=== PATIENT | female | born 1950 | race Caucasian/White ===

== ENCOUNTER → 2018-07-18 | Outpatient (CLI) | payer MEDICARE ==
[~2018-07-18] MED LIST: CALC-55 PO; LEVO100T5 PO; MULT1TAB60 PO
== END | disposition home or self-care (01) ==
LOC: STAR 09:33
PROVIDERS: ATTEND Orthopaedic Surgery
DX: M75.101 Unspecified rotator cuff tear or rupture of right shoulder, not specified as traumatic (principal); M65.811 Other synovitis and tenosynovitis, right shoulder
CPT/HCPCS: 93005

== ENCOUNTER 2018-07-25 10:19 | Day surgery (SDC) | payer MEDICARE ==
[~2018-07-25] VITALS: Ht 157.5 cm; Wt 62.5 kg
[2018-07-25] MEDS ORDERED: LACTATED RINGERS 1,000 ML IV SCH (10:58)
[2018-07-25] MEDS ORDERED: LIDOCAINE-MPF 1%, 2ML INFIL ONE (11:30)
[2018-07-25] MEDS ORDERED: LIDOCAINE 1%-EPI 1:100K, 20ML ONE (11:55)
[2018-07-25] MEDS ORDERED: MIDAZOLAM 1 MG/ML, 2ML ONE (12:38)
[2018-07-25] MEDS ORDERED: FENTANYL PF 250 MCG/5ML ONE (12:54)
[2018-07-25] MEDS ORDERED: CLINDAMYCIN 150 MG/ML, 6ML ONE (12:56)
[2018-07-25] MEDS ORDERED: PROMETHAZINE 25 MG/ML, 1ML IV PRN (13:00)
[2018-07-25] MEDS ORDERED: hydrALAzine 20 MG/ML, 1ML IV PRN (13:00)
[2018-07-25] MEDS ORDERED: ALBUTEROL SULFATE 2.5 MG/3 ML NPPB PRN (13:00)
[2018-07-25] MEDS ORDERED: OXYcodone 5 MG/5 ML ORAL.SOL UDC PO PRN (13:00)
[2018-07-25] MEDS ORDERED: LABETALOL 5MG/ML, 20ML IV PRN (13:00)
[2018-07-25] MEDS ORDERED: MEPERIDINE/PF 25MG/0.5ML IVPush PRN (13:00)
[2018-07-25] MEDS ORDERED: KETOROLAC 30 MG/1 ML IV PRN (13:00)
[2018-07-25] MEDS ORDERED: ACETAMINOPHEN 325 MG TABLET PO PRN (13:00)
[2018-07-25] MEDS ORDERED: DIAZEPAM 5 MG/ML, 2ML IVPush PRN (13:00)
[2018-07-25] MEDS ORDERED: HYDROmorphone 2 MG/ML, 1ML IVPush PRN (13:00)
[2018-07-25] MEDS ORDERED: FENTANYL PF 100 MCG/2ML IV PRN (13:00)
[2018-07-25] MEDS ORDERED: NEOSTIGMINE 1 MG/ML, 10ML ONE (14:33)
[2018-07-25] MEDS ORDERED: GLYCOPYRROLATE 0.2MG/1ML, 5ML ONE (14:33)
[2018-07-25] MEDS ORDERED: ROCURONIUM 10MG/ML,5ML ONE (14:33)
[2018-07-25] MEDS ORDERED: PROPOFOL 10 MG/ML, 20ML ONE (14:33)
[2018-07-25] MEDS ORDERED: DEXAMETHASONE 4 MG/ML, 1ML ONE (14:33)
[2018-07-25] MEDS ORDERED: ONDANSETRON 2MG/ML, 2ML ONE (14:33)
[2018-07-25] MEDS ORDERED: CEFAZOLIN 1,000 MG ONE (14:33)
== END 2018-07-25 16:30 | disposition home or self-care (01) ==
LOC: OUT 10:19
PROVIDERS: ATTEND Orthopaedic Surgery
DX: S43.431A Superior glenoid labrum lesion of right shoulder, initial encounter (principal); M75.111 Incomplete rotator cuff tear or rupture of right shoulder, not specified as traumatic; M75.41 Impingement syndrome of right shoulder; M75.51 Bursitis of right shoulder; M65.811 Other synovitis and tenosynovitis, right shoulder; Z72.89 Other problems related to lifestyle; X58.XXXA Exposure to other specified factors, initial encounter; Y93.89 Activity, other specified; Y92.89 Other specified places as the place of occurrence of the external cause; Y99.8 Other external cause status
CPT/HCPCS: 23430; 29823; 29826; 29827; 64415; C1713; J0690; J1100; J2250; J2405; J2704; J2710; J3010; J3490; J7120